=== PATIENT | female | born 1985 | race Two or more races ===

== ENCOUNTER 2023-07-08 11:49 | Emergency (ER) | payer MEDICAID, OTHER ==
[~2023-07-08] VITALS: Ht 167.6 cm; Wt 81.8 kg
[2023-07-08 11:52] VITALS: TEMP 98.4
[2023-07-08] MEDS ORDERED: HYDR30CR39 TP (13:26)
[2023-07-08] MEDS ORDERED: DOXY-354 PO (13:26)
[2023-07-08] MEDS ORDERED: PRED-554 PO (13:26)
[2023-07-08] MEDS ORDERED: DIPH-1243 PO (13:26)
[2023-07-08] MEDS ORDERED: IBUP-1506 PO (13:26)
[2023-07-08] MEDS: PredniSONE 20 MG TABLET PO ONE (13:38)
[2023-07-08] MEDS: DOXYCYCLINE HYCLATE 100 MG TABLET PO ONE (13:38)
[2023-07-08] MEDS: HYDROCODONE/ACETAMINOPHEN 5-325 MG TABLET PO ONE (13:38)
[2023-07-08 13:58] VITALS: BP 123/71; PULSE 77; RESP 16
== END 2023-07-08 14:10 | disposition home or self-care (01) ==
LOC: EMS 11:49
DX: S40.862A Insect bite (nonvenomous) of left upper arm, initial encounter (principal); L03.114 Cellulitis of left upper limb; W57.XXXA Bitten or stung by nonvenomous insect and other nonvenomous arthropods, initial encounter; Y93.89 Activity, other specified; Y92.89 Other specified places as the place of occurrence of the external cause; Y99.8 Other external cause status
CPT/HCPCS: 99284; J7512